=== PATIENT | female | born 1945 | race African-American/Black ===

== ENCOUNTER 2021-08-13 12:53 | Inpatient (IN) | payer MEDICARE, MEDICAID ==
[2021-08-13] MEDS ORDERED: methylPREDNISolone 4 mg Tablet PO SCH (20:00)
[2021-08-13] MEDS ORDERED: Mometasone/Formoterol 200/5 60 PUFF INH SCH (20:00)
[2021-08-13] MEDS ORDERED: Calcium Carbonate 500 MG ChewTAB PO PRN (20:04)
[2021-08-13] MEDS ORDERED: Loperamide HCl 2 MG CAP PO PRN (20:07)
[2021-08-13] MEDS ORDERED: Dextrose 50% Abboject 50 ML SYRINGE SLOW IVP PRN (20:10)
[2021-08-13] MEDS ORDERED: Dextrose 5% in Water 1,000 ML IV PRN (20:15)
[2021-08-13] MEDS: Cholecalciferol 1,000 UNITS (25 MCG) TAB PO SCH (21:07)
[2021-08-13] MEDS: guaiFENesin ER 600 MG TAB PO SCH (21:08)
[2021-08-13] MEDS: Lantus 1000 UNITS/10 ML VIAL SC SCH (21:09)
[2021-08-13] MEDS: Senokot S 8.6-50 MG TAB PO PRN (22:07)
[2021-08-13] MEDS: Albuterol 200 PUFF (6.7GM INHALER) INH SCH (22:08)
[2021-08-13] MEDS ORDERED: HumaLOG 300 UNITS/3 ML VIAL SC PRN (22:15)
[2021-08-14] MEDS: Albuterol 200 PUFF (6.7GM INHALER) INH SCH ×6 (02:02→22:36)
[2021-08-14] MEDS: Mometasone/Formoterol 200/5 60 PUFF INH SCH ×2 (05:42→17:50)
[2021-08-14] MEDS: HumaLOG 300 UNITS/3 ML VIAL SC PRN (05:57)
[2021-08-14 06:54] LABS: ALT (SGPT) 16 U/L (8-55); AST (SGOT) 12 U/L (5-34); Albumin 2.7 g/dL (3.4-4.8); Alkaline Phosphatase 59 U/L (40-110); Anion Gap 10 mmol/L (10-20); BUN (Urea Nitrogen) 16 mg/dL (9.8-20.1); Bilirubin, Total 1.1 mg/dL (0.2-1.2); Calc. Creatinine Clearance 96 mL/min (70-130); Calcium 8.4 mg/dL (7.8-10.44); Carbon Dioxide 25 mmol/L (23-31); Chloride 103 mmol/L (98-107); Globulin 1.8 g/dL (2.4-3.5); Glucose 225 mg/dL (83-110); Potassium 3.7 mmol/L (3.5-5.1); Protein, Total 4.5 g/dL (5.8-8.1); Sodium 134 mmol/L (136-145)
[2021-08-14 07:18] LABS: #Basophils 0.2 thou/uL (0.0-0.2); #Lymphocytes 1.3 thou/uL (1.20-3.40); #Monocytes 0.9 thou/uL (0.11-0.59); #Neutrophils 11.4 thou/uL (1.40-6.50); %Basophils 1.3 % (0.0-1.0); %Eosinophils 0.1 % (0.0-10.0); %Lymphocytes 9.6 % (21.0-51.0); %Monocytes 6.8 % (0.0-10.0); %Neutrophils 82.3 % (42.0-75.0); Hemoglobin 13.3 g/dL (12.0-16.0); Mean Corpuscular HGB CONC 31.3 g/dL (32.0-36.0); Mean Corpuscular Hemoglobin 30.3 pg (27.0-31.0); Mean Corpuscular Volume 96.7 fL (78.0-98.0); Mean Platelet Volume 6.5 fL (7.4-10.4); Platelet Count 242 thou/uL (130-400); RBC Distribution Width 15.3 % (11.5-14.5); White Blood Cell (WBC) Count 13.9 thou/uL (4.8-10.8)
[2021-08-14] MEDS: methylPREDNISolone 4 mg Tablet PO SCH ×2 (08:10→17:49)
[2021-08-14] MEDS: glipiZIDE 5 MG TAB PO SCH (08:10)
[2021-08-14] MEDS: metFORMIN 500 MG TAB PO SCH ×2 (08:10→17:49)
[2021-08-14] MEDS: Gabapentin 300 MG CAP PO SCH (08:11)
[2021-08-14] MEDS: Ascorbic Acid 500 mg Chewable Tablet PO SCH (08:11)
[2021-08-14] MEDS: NIFEdipine XL 30 MG TAB PO SCH (08:12)
[2021-08-14] MEDS: guaiFENesin ER 600 MG TAB PO SCH ×2 (08:12→20:44)
[2021-08-14] MEDS: Lisinopril 20 MG TAB PO SCH (08:12)
[2021-08-14] MEDS: Nystatin Powder 15 GM BOT TOP SCH (20:44)
[2021-08-14] MEDS: Cholecalciferol 1,000 UNITS (25 MCG) TAB PO SCH (20:44)
[2021-08-14] MEDS: Lantus 1000 UNITS/10 ML VIAL SC SCH (22:37)
[2021-08-15] MEDS: Albuterol 200 PUFF (6.7GM INHALER) INH SCH ×6 (02:30→21:32)
[2021-08-15] MEDS: Mometasone/Formoterol 200/5 60 PUFF INH SCH ×2 (06:31→18:00)
[2021-08-15] MEDS: glipiZIDE 5 MG TAB PO SCH (08:47)
[2021-08-15] MEDS: metFORMIN 500 MG TAB PO SCH ×2 (08:48→16:37)
[2021-08-15] MEDS: methylPREDNISolone 4 mg Tablet PO SCH ×2 (08:48→16:37)
[2021-08-15] MEDS: Gabapentin 300 MG CAP PO SCH (08:49)
[2021-08-15] MEDS: Ascorbic Acid 500 mg Chewable Tablet PO SCH (08:49)
[2021-08-15] MEDS: NIFEdipine XL 30 MG TAB PO SCH (08:50)
[2021-08-15] MEDS: guaiFENesin ER 600 MG TAB PO SCH ×2 (08:50→20:43)
[2021-08-15] MEDS: Lisinopril 20 MG TAB PO SCH (08:50)
[2021-08-15] MEDS: Nystatin Powder 15 GM BOT TOP SCH ×2 (08:51→20:44)
[2021-08-15] MEDS: Cholecalciferol 1,000 UNITS (25 MCG) TAB PO SCH (20:43)
[2021-08-15] MEDS: Lantus 1000 UNITS/10 ML VIAL SC SCH (20:48)
[2021-08-16] MEDS: Albuterol 200 PUFF (6.7GM INHALER) INH SCH ×6 (02:15→21:07)
[2021-08-16] MEDS: Mometasone/Formoterol 200/5 60 PUFF INH SCH ×2 (05:48→18:08)
[2021-08-16] MEDS: glipiZIDE 5 MG TAB PO SCH (07:45)
[2021-08-16] MEDS: methylPREDNISolone 4 mg Tablet PO SCH ×2 (09:03→17:08)
[2021-08-16] MEDS: Lisinopril 20 MG TAB PO SCH (09:04)
[2021-08-16] MEDS: guaiFENesin ER 600 MG TAB PO SCH ×2 (09:05→20:52)
[2021-08-16] MEDS: Gabapentin 300 MG CAP PO SCH (09:05)
[2021-08-16] MEDS: metFORMIN 500 MG TAB PO SCH ×2 (09:06→18:07)
[2021-08-16] MEDS: NIFEdipine XL 30 MG TAB PO SCH (09:06)
[2021-08-16] MEDS: Nystatin Powder 15 GM BOT TOP SCH ×2 (09:07→20:52)
[2021-08-16] MEDS: Ascorbic Acid 500 mg Chewable Tablet PO SCH (09:07)
[2021-08-16] MEDS: Cholecalciferol 1,000 UNITS (25 MCG) TAB PO SCH (20:52)
[2021-08-16] MEDS: Lantus 1000 UNITS/10 ML VIAL SC SCH (20:53)
[2021-08-17] MEDS: Albuterol 200 PUFF (6.7GM INHALER) INH SCH ×6 (01:53→21:48)
[2021-08-17] MEDS: Mometasone/Formoterol 200/5 60 PUFF INH SCH ×2 (06:09→17:11)
[2021-08-17] MEDS: glipiZIDE 5 MG TAB PO SCH (08:03)
[2021-08-17] MEDS: metFORMIN 500 MG TAB PO SCH ×2 (08:03→17:09)
[2021-08-17] MEDS: Ascorbic Acid 500 mg Chewable Tablet PO SCH (08:04)
[2021-08-17] MEDS: Gabapentin 300 MG CAP PO SCH (08:04)
[2021-08-17] MEDS: guaiFENesin ER 600 MG TAB PO SCH ×2 (08:05→21:16)
[2021-08-17] MEDS: NIFEdipine XL 30 MG TAB PO SCH (08:05)
[2021-08-17] MEDS: Lisinopril 20 MG TAB PO SCH (08:06)
[2021-08-17] MEDS: methylPREDNISolone 4 mg Tablet PO SCH (08:07)
[2021-08-17] MEDS: Nystatin Powder 15 GM BOT TOP SCH ×2 (08:08→21:17)
[2021-08-17] MEDS: Lantus 1000 UNITS/10 ML VIAL SC SCH (21:16)
[2021-08-17] MEDS: Cholecalciferol 1,000 UNITS (25 MCG) TAB PO SCH (21:16)
[2021-08-18] MEDS: Albuterol 200 PUFF (6.7GM INHALER) INH SCH ×6 (02:26→21:11)
[2021-08-18] MEDS: Mometasone/Formoterol 200/5 60 PUFF INH SCH ×2 (06:01→17:39)
[2021-08-18 06:03] VITALS: BMI 36.4
[2021-08-18] MEDS: guaiFENesin ER 600 MG TAB PO SCH ×2 (08:00→21:14)
[2021-08-18] MEDS: NIFEdipine XL 30 MG TAB PO SCH (08:00)
[2021-08-18] MEDS: Ascorbic Acid 500 mg Chewable Tablet PO SCH (08:01)
[2021-08-18] MEDS: methylPREDNISolone 4 mg Tablet PO SCH (08:01)
[2021-08-18] MEDS: Gabapentin 300 MG CAP PO SCH (08:01)
[2021-08-18] MEDS: Nystatin Powder 15 GM BOT TOP SCH ×2 (08:03→21:13)
[2021-08-18] MEDS: Lisinopril 20 MG TAB PO SCH (08:03)
[2021-08-18] MEDS: glipiZIDE 5 MG TAB PO SCH (08:21)
[2021-08-18] MEDS: metFORMIN 500 MG TAB PO SCH ×2 (08:22→17:39)
[2021-08-18] MEDS: HumaLOG 300 UNITS/3 ML VIAL SC PRN (17:40)
[2021-08-18] MEDS: Cholecalciferol 1,000 UNITS (25 MCG) TAB PO SCH (21:14)
[2021-08-18] MEDS: Lantus 1000 UNITS/10 ML VIAL SC SCH (21:16)
[2021-08-18] MEDS: Senokot S 8.6-50 MG TAB PO PRN (21:27)
[2021-08-18] MEDS: Melatonin 3 MG TAB PO PRN (21:27)
[2021-08-19] MEDS: Albuterol 200 PUFF (6.7GM INHALER) INH SCH ×6 (03:51→21:03)
[2021-08-19] MEDS: Mometasone/Formoterol 200/5 60 PUFF INH SCH ×2 (05:35→17:56)
[2021-08-19] MEDS: Ascorbic Acid 500 mg Chewable Tablet PO SCH (08:02)
[2021-08-19] MEDS: Gabapentin 300 MG CAP PO SCH (08:02)
[2021-08-19] MEDS: guaiFENesin ER 600 MG TAB PO SCH ×2 (08:02→21:03)
[2021-08-19] MEDS: glipiZIDE 5 MG TAB PO SCH (08:02)
[2021-08-19] MEDS: metFORMIN 500 MG TAB PO SCH ×2 (08:02→17:55)
[2021-08-19] MEDS: Lisinopril 20 MG TAB PO SCH (08:03)
[2021-08-19] MEDS: NIFEdipine XL 30 MG TAB PO SCH (08:03)
[2021-08-19] MEDS: methylPREDNISolone 4 mg Tablet PO SCH (08:03)
[2021-08-19] MEDS: Nystatin Powder 15 GM BOT TOP SCH ×2 (08:04→21:03)
[2021-08-19] MEDS: Cholecalciferol 1,000 UNITS (25 MCG) TAB PO SCH (21:03)
[2021-08-19] MEDS: Lantus 1000 UNITS/10 ML VIAL SC SCH (21:04)
[2021-08-20] MEDS: Albuterol 200 PUFF (6.7GM INHALER) INH SCH ×6 (02:03→21:13)
[2021-08-20] MEDS: Mometasone/Formoterol 200/5 60 PUFF INH SCH ×2 (06:20→18:19)
[2021-08-20] MEDS: Senokot S 8.6-50 MG TAB PO PRN ×2 (06:22→21:13)
[2021-08-20] MEDS: glipiZIDE 5 MG TAB PO SCH (07:54)
[2021-08-20] MEDS: Gabapentin 300 MG CAP PO SCH (07:55)
[2021-08-20] MEDS: metFORMIN 500 MG TAB PO SCH ×2 (07:55→18:19)
[2021-08-20] MEDS: Ascorbic Acid 500 mg Chewable Tablet PO SCH (07:55)
[2021-08-20] MEDS: guaiFENesin ER 600 MG TAB PO SCH ×2 (07:56→21:13)
[2021-08-20] MEDS: Lisinopril 20 MG TAB PO SCH (07:56)
[2021-08-20] MEDS: methylPREDNISolone 4 mg Tablet PO SCH ×2 (07:56→07:57)
[2021-08-20] MEDS: NIFEdipine XL 30 MG TAB PO SCH (07:57)
[2021-08-20] MEDS: Nystatin Powder 15 GM BOT TOP SCH ×2 (08:03→21:17)
[2021-08-20] MEDS: Cholecalciferol 1,000 UNITS (25 MCG) TAB PO SCH (21:15)
[2021-08-20] MEDS: Lantus 1000 UNITS/10 ML VIAL SC SCH (21:17)
[2021-08-21] MEDS: Albuterol 200 PUFF (6.7GM INHALER) INH SCH ×6 (02:19→21:22)
[2021-08-21] MEDS: Mometasone/Formoterol 200/5 60 PUFF INH SCH ×2 (06:20→18:18)
[2021-08-21] MEDS: methylPREDNISolone 4 mg Tablet PO SCH (07:43)
[2021-08-21] MEDS: Gabapentin 300 MG CAP PO SCH (07:46)
[2021-08-21] MEDS: Lisinopril 20 MG TAB PO SCH (07:46)
[2021-08-21] MEDS: guaiFENesin ER 600 MG TAB PO SCH ×2 (07:47→21:19)
[2021-08-21] MEDS: NIFEdipine XL 30 MG TAB PO SCH (07:47)
[2021-08-21] MEDS: glipiZIDE 5 MG TAB PO SCH (07:48)
[2021-08-21] MEDS: Ascorbic Acid 500 mg Chewable Tablet PO SCH (07:48)
[2021-08-21] MEDS: metFORMIN 500 MG TAB PO SCH ×2 (07:48→18:20)
[2021-08-21] MEDS: Nystatin Powder 15 GM BOT TOP SCH (07:51)
[2021-08-21] MEDS: Cholecalciferol 1,000 UNITS (25 MCG) TAB PO SCH (21:18)
[2021-08-21] MEDS: Senokot S 8.6-50 MG TAB PO PRN (21:18)
[2021-08-21] MEDS: Lantus 1000 UNITS/10 ML VIAL SC SCH (21:21)
[2021-08-22] MEDS: Melatonin 3 MG TAB PO PRN (00:43)
[2021-08-22] MEDS: Albuterol 200 PUFF (6.7GM INHALER) INH SCH ×6 (03:17→22:55)
[2021-08-22] MEDS: Mometasone/Formoterol 200/5 60 PUFF INH SCH ×2 (05:30→17:41)
[2021-08-22] MEDS: Lisinopril 20 MG TAB PO SCH (07:54)
[2021-08-22] MEDS: Gabapentin 300 MG CAP PO SCH (07:55)
[2021-08-22] MEDS: glipiZIDE 5 MG TAB PO SCH (07:55)
[2021-08-22] MEDS: NIFEdipine XL 30 MG TAB PO SCH (07:56)
[2021-08-22] MEDS: methylPREDNISolone 4 mg Tablet PO SCH (07:57)
[2021-08-22] MEDS: guaiFENesin ER 600 MG TAB PO SCH ×2 (07:57→21:25)
[2021-08-22] MEDS: metFORMIN 500 MG TAB PO SCH ×2 (07:57→17:41)
[2021-08-22] MEDS: Ascorbic Acid 500 mg Chewable Tablet PO SCH (07:57)
[2021-08-22] MEDS: Lantus 1000 UNITS/10 ML VIAL SC SCH (21:24)
[2021-08-22] MEDS: Cholecalciferol 1,000 UNITS (25 MCG) TAB PO SCH (21:25)
[2021-08-23] MEDS: Albuterol 200 PUFF (6.7GM INHALER) INH SCH ×6 (02:56→23:00)
[2021-08-23] MEDS: Mometasone/Formoterol 200/5 60 PUFF INH SCH ×2 (06:04→18:39)
[2021-08-23 06:34] LABS: #Eosinphils 0.1 thou/uL (0.0-0.7); #Lymphocytes 1.6 thou/uL (1.20-3.40); #Monocytes 0.8 thou/uL (0.11-0.59); #Neutrophils 5.4 thou/uL (1.40-6.50); %Basophils 0.6 % (0.0-1.0); %Eosinophils 0.7 % (0.0-10.0); %Monocytes 9.9 % (0.0-10.0); %Neutrophils 68.9 % (42.0-75.0); Mean Corpuscular Hemoglobin 30.6 pg (27.0-31.0); Mean Corpuscular Volume 98.6 fL (78.0-98.0); Platelet Count 195 thou/uL (130-400); RBC Distribution Width 16.1 % (11.5-14.5); White Blood Cell (WBC) Count 7.9 thou/uL (4.8-10.8)
[2021-08-23 06:45] LABS: Anion Gap 9 mmol/L (10-20); BUN (Urea Nitrogen) 10 mg/dL (9.8-20.1); Calc. Creatinine Clearance 130 mL/min (70-130); Calcium 8.8 mg/dL (7.8-10.44); Carbon Dioxide 30 mmol/L (23-31); Chloride 108 mmol/L (98-107); Glucose 113 mg/dL (83-110); Potassium 3.1 mmol/L (3.5-5.1); Sodium 144 mmol/L (136-145)
[2021-08-23] MEDS: glipiZIDE 5 MG TAB PO SCH (07:30)
[2021-08-23] MEDS: NIFEdipine XL 30 MG TAB PO SCH (09:02)
[2021-08-23] MEDS: Ascorbic Acid 500 mg Chewable Tablet PO SCH (09:02)
[2021-08-23] MEDS: metFORMIN 500 MG TAB PO SCH ×2 (09:02→18:39)
[2021-08-23] MEDS: guaiFENesin ER 600 MG TAB PO SCH ×2 (09:03→21:22)
[2021-08-23] MEDS: Gabapentin 300 MG CAP PO SCH (09:03)
[2021-08-23] MEDS: Lisinopril 20 MG TAB PO SCH (09:05)
[2021-08-23] MEDS ORDERED: Potassium Chloride 20 MEQ TAB PO SCH (11:15)
[2021-08-23] MEDS ORDERED: Acetaminophen 325 MG TAB PO PRN (17:36)
[2021-08-23] MEDS: Cholecalciferol 1,000 UNITS (25 MCG) TAB PO SCH (21:22)
[2021-08-23] MEDS: Lantus 1000 UNITS/10 ML VIAL SC SCH (21:22)
[2021-08-24] MEDS: Albuterol 200 PUFF (6.7GM INHALER) INH SCH ×3 (02:22→10:41)
[2021-08-24] MEDS: Mometasone/Formoterol 200/5 60 PUFF INH SCH (05:51)
[2021-08-24] MEDS: Ascorbic Acid 500 mg Chewable Tablet PO SCH (08:19)
[2021-08-24] MEDS: NIFEdipine XL 30 MG TAB PO SCH (08:19)
[2021-08-24 08:20] VITALS: TEMP 98.4
[2021-08-24] MEDS: guaiFENesin ER 600 MG TAB PO SCH (08:20)
[2021-08-24] MEDS: glipiZIDE 5 MG TAB PO SCH (08:20)
[2021-08-24] MEDS: Lisinopril 20 MG TAB PO SCH (08:20)
[2021-08-24] MEDS: Gabapentin 300 MG CAP PO SCH (08:20)
[2021-08-24] MEDS: metFORMIN 500 MG TAB PO SCH (08:21)
[2021-08-24 10:29] VITALS: BP 152/66
== END 2021-08-24 11:00 | disposition home health service (06) | DRG 551 ==
LOC: NAV ACUTE 17:37
PROVIDERS: ADMIT Family Medicine; ATTEND Family Medicine
DX: M48.062 Spinal stenosis, lumbar region with neurogenic claudication (principal); J96.21 Acute and chronic respiratory failure with hypoxia; G83.4 Cauda equina syndrome; R53.81 Other malaise; J44.9 Chronic obstructive pulmonary disease, unspecified; Z20.822 Contact with and (suspected) exposure to COVID-19; I10 Essential (primary) hypertension; E78.5 Hyperlipidemia, unspecified; T38.0X5A Adverse effect of glucocorticoids and synthetic analogues, initial encounter; E87.6 Hypokalemia; E11.65 Type 2 diabetes mellitus with hyperglycemia; E66.9 Obesity, unspecified; Z86.16 Personal history of COVID-19; Z79.899 Other long term (current) drug therapy; Z79.84 Long term (current) use of oral hypoglycemic drugs; Z90.49 Acquired absence of other specified parts of digestive tract; Z87.891 Personal history of nicotine dependence; Z68.36 Body mass index [BMI] 36.0-36.9, adult
CPT/HCPCS: 36416; 80048; 80053; 85025; 94640; 94664; 36415-59; J1815; J7509; J7620